=== PATIENT | female | born 1975 | race Caucasian/White ===

== ENCOUNTER 2019-07-19 07:35 | Day surgery (SDC) | payer BC ==
--- NOTE | 2019-07-19 08:21 | PCM.PREANE ---
Preanesthetic Assessment - Anesthesia/Transfusion/Family Hx Anesthesia History: Prior Anesthesia Without Reaction ((LEEP)) Family History of Anesthesia Reaction: No Transfusion History: No Prior Transfusion(s) - Review of Systems General: No Symptoms Pulmonary: No Symptoms Cardiovascular: No Symptoms Gastrointestinal: No Symptoms Neurological: No Symptoms Other: Reports: None - Physical Assessment NPO Status Date: 07/18/19 Height: 5 ft 5 in Weight: 92.533 kg ASA Class: 2 Airway Class: Mallampati = 3 Dentition: Reports: Normal Dentition ROM/Head Extension: Full Lungs: Clear to Auscultation, Normal Respiratory Effort Cardiovascular: Regular Rate, Regular Rhythm - Allergies Allergies/Adverse Reactions: Allergies Allergy/AdvReac Type Severity Reaction Status Date / Time adhesive tape Allergy Rash Verified 07/13/19 15:52 banana Allergy Rash Verified 07/13/19 15:52 lamotrigine Allergy Rash Verified 07/13/19 15:52 Latex, Natural Rubber Allergy Rash Verified 07/13/19 15:54 metformin Allergy Swelling Verified 07/13/19 15:52 nickel Allergy Rash Verified 07/13/19 15:52 Penicillins Allergy Rash Verified 07/13/19 15:53 strawberry Allergy Rash Verified 07/13/19 15:52 - Blood Blood Available: No - Anesthesia Plan Pre-Op Medication Ordered: None - Acknowledgements Anesthesia Type Planned: General Anesthesia Pt an Appropriate Candidate for the Planned Anesthesia: Yes Alternatives and Risks of Anesthesia Discussed w Pt/Guardian: Yes Pt/Guardian Understands and Agrees with Anesthesia Plan: Yes Additional Comments: PMH: bipolar disorder, migraines, endometriosis, PLAN: get PreAnesthesia Questionnaire HEENT History: Reports: Other (See Below) Other HEENT History: wears glasses Cardiovascular History: Reports: Heart Murmur Respiratory History: Reports: Other (See Below) Other Respiratory History: thinks she may have sleep apnea, not diagnosed Gastrointestinal History: Reports: None Genitourinary History: Reports: None SIGNAL TOWER DIRECTOR History: Reports: Musculoskeletal History: Reports: None Neurological History: Reports: Migraines Psychiatric History: Reports: Anxiety, Bipolar, Depression, PTSD Endocrine/Metabolic History: Reports: Obesity/BMI 30+, Other (See Below) Other Endocrine/Metabolic History: was told once she was prediabetic Hematologic History: Reports: Anemia Immunologic History: Reports: None Oncologic (Cancer) History: Reports: None Dermatologic History: Reports: Other (See Below) Other Dermatologic History: rash on left hand - Past Surgical History Head Surgeries/Procedures: Reports: None HEENT Surgical History: Reports: Oral Surgery Cardiovascular Surgical History: Reports: None Respiratory Surgical History: Reports: None GI Surgical History: Reports: None Female Surgical History: Reports: LEEP Endocrine Surgical History: Reports: None Neurological Surgical History: Reports: None Musculoskeletal Surgical History: Reports: None Oncologic Surgical History: Reports: Other (See Below) Other Oncologic Surgeries/Procedures: LEEP Dermatological Surgical History: Reports: None - SUBSTANCE USE Smoking Status *Q: Never Smoker - HOME MEDS Home Medications: Home Meds Calcium Carbonate/Vitamin D3 [Caltrate 600 Plus D3 Tablet] 1 tab PO DAILY [History] Desvenlafaxine [Desvenlafaxine ER] 150 mg PO DAILY 07/13/19 [History] Elagolix Sodium [Orilissa] 200 mg PO BID 07/13/19 [History] Fexofenadine/Pseudoephedrine [Lilli-D 24 Hour Tablet] 1 tab PO DAILY 07/13/19 [History] Hydrocortisone [Hydrocortisone 2.5% Crm] 1 applic TOP TID PRN 07/13/19 [History] Iron,Carbonyl/Ascorbic Acid [Vitron-C Tablet] 1 tab PO DAILY 07/13/19 [History] LORazepam [Lorazepam] 1 tab PO BID PRN 07/13/19 [History] Lurasidone HCl [Latuda] 80 mg PO DAILY 07/13/19 [History] Vitamin B Complex 1 tab PO DAILY 07/13/19 [History] diphenhydrAMINE [Benadryl] 25 mg PO TID PRN 07/13/19 [History] traZODone HCl [Trazodone HCl] 0.5 - 1 tab PO BEDTIME PRN 07/13/19 [History]
[2019-07-19] MEDS ORDERED: Ondansetron 4 MG/2 ML SDV ONE (08:28)
[2019-07-19] MEDS ORDERED: Midazolam 1 MG/ML 2 ML SDV ONE (08:28)
[2019-07-19] MEDS ORDERED: Rocuronium 100 MG/10 ML Syringe ONE (08:28)
[2019-07-19] MEDS ORDERED: Lidocaine 2% 5 ML SDV ONE (08:28)
[2019-07-19] MEDS ORDERED: Propofol 200 MG/20 ML SDV ONE (08:28)
[2019-07-19] MEDS ORDERED: Glycopyrrolate 0.2 MG/ML SDV ONE ×3 (08:28→10:43)
[2019-07-19] MEDS ORDERED: Neostigmine Methylsulfate 1 MG/ML 5 ML Syringe ONE (08:28)
[2019-07-19] MEDS ORDERED: fentaNYL 250 MCG/5 ML SDV ONE (08:28)
[2019-07-19] MEDS ORDERED: 50% Dextrose in Water 50 ML Syringe IVPUSH PRN (08:39)
[2019-07-19] MEDS ORDERED: fentaNYL 100 MCG/2 ML SDV IVPUSH PRN (08:39)
[2019-07-19] MEDS ORDERED: Albuterol 0.083% 2.5 MG/3 ML Neb Soln NEB PRN (08:39)
[2019-07-19] MEDS ORDERED: EPINEPHrine 1:10,000 1 MG/10 ML Syringe IVPUSH PRN (08:39)
[2019-07-19] MEDS ORDERED: Atropine 0.1 MG/ML 10 ML Syringe IVPUSH PRN ×2 (08:39)
[2019-07-19] MEDS ORDERED: Naloxone 0.4 MG/ML Syringe IVPUSH PRN (08:39)
[2019-07-19 08:52] LABS: BLOOD UREA NITROGEN,BUN 12 mg/dL (7.0-18.0); CARBON DIOXIDE,CO2 26.5 mmol/L (21.0-32.0); CHLORIDE,CL 106 mmol/L (98-107); GLUCOSE RANDOM 107 mg/dL (74-106); POTASSIUM,K 4.3 mmol/L (3.5-5.1); SODIUM,NA 141 mmol/L (136-145)
[2019-07-19] MEDS ORDERED: Lactated Ringers 1,000 ML IV SCH (09:15)
[2019-07-19] MEDS ORDERED: Methylene Blue 50 MG/10 ML Ampule ONE (09:47)
[2019-07-19] MEDS ORDERED: Bupivacaine 0.25% 10 ML SDV ONE (09:47)
[2019-07-19] MEDS ORDERED: Furosemide 40 MG/4 ML VIAL ONE (10:44)
[2019-07-19] MEDS ORDERED: Fluorescein 5 ML Vial ONE (11:04)
[2019-07-19] MEDS ORDERED: fentaNYL 100 MCG/2 ML SDV ONE (11:07)
[2019-07-19] MEDS ORDERED: HYDROmorphone 2 MG/ML Syringe ONE (11:07)
[2019-07-19] MEDS ORDERED: ePHEDrine 50 MG/ML SDV ONE (11:27)
[2019-07-19] MEDS ORDERED: Morphine 4 MG/ML Syringe IVPUSH PRN (12:13)
[2019-07-19] MEDS ORDERED: Promethazine 25 MG/ML SDV IM PRN (12:13)
[2019-07-19] MEDS ORDERED: Ondansetron 4 MG/2 ML SDV IVPUSH PRN (12:13)
[2019-07-19] MEDS ORDERED: Acetaminophen/oxyCODONE 325-5 MG Tab PO PRN (12:13)
[2019-07-19] MEDS ORDERED: Ketorolac 30 MG/ML SDV IVPUSH ONE (12:13)
--- NOTE | 2019-07-19 12:18 | PCM.OPNOTE ---
- General Post-Op/Procedure Note Date of Surgery/Procedure: 07/19/19 Operative Procedure(s): laparoscopically assisted vaginal hysterectomy with posterior colporrhaphy, bilateral salpingectomy and cystoscopy Findings: no endometriosis, normal appearing uterus, tubes and ovaries. On cystoscopy there was copious flow of bright green urine after IV fluoroscein. Pre Op Diagnosis: menorrhagia, 3rd degree rectocele. Post-Op Diagnosis: Same Anesthesia Technique: General ET Tube Primary Surgeon: Ceci Moran Secondary Surgeon: Raji Joay Anesthesia Provider: Ulysses Amin Suspender Cutter: Ulysses Magallanes Pathology: uterus, bilateral fallopian tubes, vaginal mucosa. EBL in mLs: 100 Drain/Tube Comments:: urinary catheter, vaginal packing. Complications: None Known Condition: Good
--- NOTE | 2019-07-19 13:43 | OR ---
SURGEON: Ceci Moran M.D. DATE OF PROCEDURE: 07/19/2019 PREOPERATIVE DIAGNOSES: Menorrhagia, third-degree symptomatic rectocele. POSTOPERATIVE DIAGNOSES: Menorrhagia, third-degree symptomatic rectocele. PROCEDURES PERFORMED: Laparoscopically assisted vaginal hysterectomy with bilateral salpingectomy, posterior colporrhaphy, and cystoscopy. PRIMARY SURGEON: Ceci Moran MD. DRAPERY SEWER HAND: Raji Joya MD. ANESTHESIA: General endotracheal. FINDINGS: Uterus anteverted. Normal-appearing uterus, tubes, and ovaries. There was a retracted scar medial to the left uterosacral ligament. Otherwise, no evidence of endometriosis. There were some filmy adhesions of the bowel epiploica to the left tube, which were lysed. Upon cystoscopy, after IV fluorescein, there was copious flow of bright green urine bilaterally. No evidence of any trauma to the bladder mucosa. COMPLICATIONS: None known. DISPOSITION: Stable to Recovery. ESTIMATED BLOOD LOSS: 100 mL. BRIEF HISTORY: This is a 43-year-old female with a history of fourth-degree laceration. She has difficulty initiating bowel movements. She has a bulge from the posterior vagina. She understands some risk of rectal injury if repair is performed, but she would like to proceed with posterior colporrhaphy at the time of hysterectomy. She has also had abnormal uterine bleeding. Ultrasound showed multiple cystic areas beneath the endometrium, most consistent with adenomyosis. Personal and family history is consistent with endometriosis. She has been offered and declined the Mirena IUD, but would like to proceed with laparoscopically assisted vaginal hysterectomy with bilateral salpingectomy, cystoscopy, and if endometriosis is identified at the time of hysterectomy, would also like to have a bilateral oophorectomy. Surgical risks were reviewed including bleeding; infection; injury to bowel, bladder, blood vessels, ureters, or other organs; risk of thromboembolic event; risk of anesthesia. Understanding these risks, she does desire to proceed. DESCRIPTION OF PROCEDURE: With the patient in dorsal lithotomy position, under adequate general endotracheal anesthesia, the perineum and vagina were prepped with Betadine. The abdomen was prepped with chlorhexidine and draped in the usual fashion for abdominal surgery. No adhesive was used on her skin, and therefore, the abdomen was toweled off and then the paper drape was placed above the towels. The Willis catheter had been placed and backfilled with 30 mL of dilute indigo. SCDs were in place and an appropriate time-out was held. Bimanual examination revealed an anteverted 10-week size uterus. Speculum was placed in the vagina. The anterior lip of the cervix was grasped with an Allis clamp and dilated to a 6 mm Hegar dilator. The ZUMI uterine manipulator was then placed into the uterine fundus and the speculum was removed from the vagina. It Administrator's gloves were changed and attention was turned abdominally, where a 5 mm incision was made vertically inferior to the umbilicus. The anterior abdominal wall was elevated. Veress needle was inserted. Opening pressure was 3 mmHg. CO2 was insufflated to develop an adequate pneumoperitoneum of 15 mmHg. The patient was placed in steep Trendelenburg position. After the port site had been placed and the laparoscope was placed to the abdominal cavity with no evidence of any trauma at the port placement site, two additional ports were placed 2 cm medial and cephalad from the anterior superior iliac spine on the right and the left. The uterus was elevated. The pelvis was inspected with findings being normal liver, gallbladder, normal appendix. Normal uterus, tubes, and ovaries except for adhesion of the bowel epiploica to the left tube and a retracted adhesion medial to the left uterosacral ligament. There was no other evidence of endometriosis. Therefore, decision was made to allow her to retain the ovaries. The ureters were inspected and were deep in the pelvis. The LigaSure was utilized to release the bowel epiploica from the tubes. The tip of the tube was then grasped and the mesosalpinx was then cauterized and ligated going distal to medial up to the uterine cornua. The utero-ovarian ligament was then doubly cauterized, cut, and transected. The round ligament was doubly cauterized, cut, and the anterior leaf of the broad ligament was opened proceeding along the anterior peritoneal reflection of the lower uterine segment. The upper portion of the broad ligament was then doubly cauterized and cut. This process was repeated on the opposite side and the abdomen was then desufflated. The instruments were removed and attention was then turned vaginally. The Willis catheter was released. A weighted speculum was placed posteriorly and vaginal sidewall retractors were utilized. The cervix was grasped with a Jaspreet tenaculum, circumscribed using electrocautery. The posterior cul-de-sac was then entered sharply and a Parker-Auvard speculum was placed posteriorly. The anterior cul-de-sac was entered sharply. A finger was placed into the peritoneum meeting the previous dissection from above and the right angle retractor was placed in the anterior cul-de-sac. The uterosacral ligaments were then cross-clamped, cut, and ligated using a Domo ligature of 2-0 Polysorb. These were retained. The additional two pedicles were taken on the right and the left of the lower portion of the broad ligament. They were clamped, cut, and ligated using a Domo ligature of 2-0 Polysorb. The uterus and tubes were then delivered vaginally. The pedicles were inspected and were hemostatic. The retained uterosacral ligaments were ligated to the vaginal apices bilaterally. The vaginal cuff was closed with a running lock suture of 0 Polysorb. The catheter was removed. After IV fluorescein was given as well as Lasix, cystoscopy was performed with note made of copious bright green urine from bilateral ureteral orifices. There was also no evidence of any trauma of the bladder mucosa. The Willis catheter was then replaced. Attention was then turned to the posterior vaginal wall. Retractors were placed. There was a divot just inside of the perineum, and I began my dissection above this divot. As she has a known fourth-degree laceration, I did not want to risk any rectal injury in the midline. Hydrodissection was performed. A 15 blade scalpel was used to slightly incise the vagina. The vaginal mucosa was then undermined using Metzenbaum scissors and incised in the midline. The muscularis layer was then from the underlying vaginal mucosa up to the level of the cuff where a small enterocele was noted. It was ligated using a pursestring suture of 2-0 Polysorb. The muscularis layer was then reapproximated in the midline using multiple interrupted mattress sutures of 2-0 Polysorb. The vaginal mucosa was slightly trimmed and reapproximated using a running suture of 0 Polysorb. The vagina being hemostatic was then packed. Attention was then turned to the abdomen which was re-insufflated after tobacco packing machine operator's gloves were changed. The pelvis was inspected under high and low pressure and was hemostatic. Therefore, the ports were removed after complete desufflation and the skin was closed with subcuticular suture of 4-0 Monocryl. Again, carefully avoiding any adhesive, except that she stated that she could tolerate paper tape, which was placed over a 2 x 2 to cover the incision. Final sponge, needle, and instrument counts were reported as correct. There were no known complications. The patient was transferred to Recovery in good condition. BREANA RUVALCABA /[id number]
[2019-07-19] MEDS: Acetaminophen/oxyCODONE 325-5 MG Tab PO PRN ×2 (14:06→23:57)
[2019-07-19] MEDS: diphenhydrAMINE 25 MG Cap PO PRN (19:25)
[2019-07-19] MEDS: Ketorolac 30 MG/ML SDV IVPUSH SCH ×2 (19:26→20:07)
[2019-07-20] MEDS: Ketorolac 30 MG/ML SDV IVPUSH SCH ×2 (00:41→06:23)
[2019-07-20] MEDS: Acetaminophen/oxyCODONE 325-5 MG Tab PO PRN ×2 (04:32→08:29)
[2019-07-20 06:02] LABS: CARBON DIOXIDE,CO2 29.3 mmol/L (21.0-32.0); POTASSIUM,K 4.5 mmol/L (3.5-5.1)
[2019-07-20] MEDS: diphenhydrAMINE 25 MG Cap PO PRN (07:33)
== END 2019-07-20 09:15 | disposition home or self-care (01) ==
LOC: MW.SDS 07:35 → MW.OB 12:13 → MW.SDS 07-20 09:15
PROVIDERS: ATTEND Obstetrics & Gynecology
DX: N80.0 Endometriosis of uterus (principal); N81.5 Vaginal enterocele; N81.6 Rectocele; F31.9 Bipolar disorder, unspecified; F41.9 Anxiety disorder, unspecified; E66.9 Obesity, unspecified; Z68.34 Body mass index [BMI] 34.0-34.9, adult; Z79.899 Other long term (current) drug therapy
CPT/HCPCS: 36415; 57268; 58552; 80048; 81025; 85025; 85027; 86850; 86900; 86901; 88307; A9270; J1170; J1885; J1940; J2001; J2250; J2405; J2704; J3010; J3490

== ENCOUNTER 2022-03-21 06:34 | Day surgery (SDC) | payer BC ==
[~2022-03-21 06:34] MED LIST: Lactated Ringers 1,000 ML IV SCH
[2022-03-21] MEDS ORDERED: Lidocaine 2% 5 ML SDV ONE (07:19)
[2022-03-21] MEDS ORDERED: fentaNYL 100 MCG/2 ML SDV ONE (07:19)
[2022-03-21] MEDS ORDERED: Propofol 200 MG/20 ML SDV ONE ×4 (07:19→08:38)
[2022-03-21] MEDS ORDERED: Lactated Ringers 1,000 ML IV SCH (09:15)
== END 2022-03-21 09:37 | disposition home or self-care (01) ==
LOC: MW.SDS 06:34
PROVIDERS: ATTEND Surgery
DX: K62.5 Hemorrhage of anus and rectum (principal); K59.00 Constipation, unspecified; E11.9 Type 2 diabetes mellitus without complications; E78.5 Hyperlipidemia, unspecified; F31.9 Bipolar disorder, unspecified; F43.10 Post-traumatic stress disorder, unspecified; E66.9 Obesity, unspecified; Z98.890 Other specified postprocedural states; Z88.0 Allergy status to penicillin; Z88.8 Allergy status to other drugs, medicaments and biological substances; Z91.018 Allergy to other foods; Z79.899 Other long term (current) drug therapy; Z79.84 Long term (current) use of oral hypoglycemic drugs
CPT/HCPCS: 45378; 82947; J2704; J3010; J7120; 00811